=== PATIENT | female | born 1985 | race Caucasian/White ===

== ENCOUNTER 2020-06-21 06:53 | Outpatient (NON) | payer BC, SELFPAY ==
[2020-06-22 13:43] LABS: SARS-CoV-2 RNA PCR Negative
== END 2020-06-21 06:54 ==
LOC: ANHCOVIDDT 06:56
DX: R68.89 Other general symptoms and signs (principal); Z20.828 Contact with and (suspected) exposure to other viral communicable diseases
CPT/HCPCS: 87635; C9803; U0003